=== PATIENT | male | born 1990 | race African-American/Black ===

== ENCOUNTER 2018-05-19 10:24 | Emergency (ER) | payer MEDICAID, OTHER ==
[~2018-05-19] VITALS: Ht 167.6 cm; Wt 79.0 kg
[2018-05-19 10:53] VITALS: BP 138/79
[2018-05-19] MEDS ORDERED: CYCLOBENZAPRINE 10MG TABLET PO ONE (11:30)
== END 2018-05-19 11:52 | disposition home or self-care (01) ==
LOC: ER 10:24
DX: S16.1XXA Strain of muscle, fascia and tendon at neck level, initial encounter (principal); V43.92XA Unspecified car occupant injured in collision with other type car in traffic accident, initial encounter; Y93.89 Activity, other specified; Y92.89 Other specified places as the place of occurrence of the external cause; Y99.8 Other external cause status
CPT/HCPCS: 99283